=== PATIENT | female | born 1985 | race Two or more races ===

== ENCOUNTER 2019-11-09 02:29 | Emergency (ER) | payer OTHER ==
[~2019-11-09] VITALS: Ht 170.2 cm; Wt 59.0 kg
[2019-11-09] MEDS ORDERED: ASPIR 8181 MG (02:33)
[2019-11-09] MEDS ORDERED: ZYNCOF 20-400120 ML PO (05:49)
[2019-11-09] MEDS ORDERED: VISTARIL25 MG PO (05:49)
== END 2019-11-09 06:04 ==
LOC: ER 02:29
DX: F43.0 Acute stress reaction (principal); F06.4 Anxiety disorder due to known physiological condition